=== PATIENT | female | born 1985 | race Caucasian/White ===

== ENCOUNTER 2018-09-23 11:55 | Emergency (ER) | payer SELFPAY ==
[2018-09-23 12:59] LABS: Barbiturates NEGATIVE (NEGATIVE); Benzodiazepines NEGATIVE (NEGATIVE); Cocaine NEGATIVE (NEGATIVE); METHAMPHETAM NEGATIVE (NEGATIVE); Methadone NEGATIVE (NEGATIVE); Opiates NEGATIVE (NEGATIVE); Phencyclidine NEGATIVE (NEGATIVE); THC Cannibis NEGATIVE (NEGATIVE)
[2018-09-23 13:19] LABS: Absolute Lymphocytes (CBC) 1.6 K/uL (0.7-4.9); Absolute Monocytes 0.6 K/uL (0.1-1.3); Absolute Neutrophil 6.7 K/uL (1.8-8.0); Basophils % 0.5 % (0-1.3); Eosinophils % 0.1 % (0-4.4); Hematocrit 45.9 % (36.0-45.0); Lymphocytes % 17.5 % (15.3-44.8); MPV 8.5 fL (7.6-11.3); Monocytes % 6.8 % (3.3-12.3); RBC Red Blood Cell Count 4.94 M/uL (3.86-4.86)
[2018-09-23 13:52] LABS: BUN Blood Urea Nitrogen 13 mg/dL (7-18); Bicarbonate 23 mmol/L (21-32); Glucose Level 88 mg/dL (74-106); HCG, Quantitative 2636 mIU/mL (1-3); Potassium 3.7 mmol/L (3.5-5.1); Sodium Level 141 mmol/L (136-145)
[2018-09-23 14:39] LABS: Urine Blood NEGATIVE (NEG); Urine Glucose NEGATIVE (NEG); Urine Protein 2+ (NEG); Urine Specific Gravity >1.030 (1.005-1.030); Urine pH 5.5 (5.0-7.0)
[2018-09-23] MEDS ORDERED: ACETAMINOPHEN 500 MG TAB ONE ×2 (15:08→15:15)
[2018-09-23] MEDS ORDERED: NA CHLORIDE 0.9% 1,000 ML ONE (15:37)
--- NOTE | 2018-09-23 15:38 | RAD REPORT ---
EXAM DESCRIPTION: US - Transvaginal OB - 09/23/2018 3:10 pm CLINICAL HISTORY: Pelvic pain, early , abdominal cramping COMPARISON: None. TECHNIQUE: Endovaginal sonography performed. FINDINGS: An oval gestational sac or cyst is present in the fundal portion of the endometrial cavity . Sac is normal in shape. Size corresponds to a 5 week 0 day age. No pole or yolk sac identifia ble. A 2.5 centimeter complex right ovarian cyst is identified. No left ovarian abnormality seen. No adnex al mass. Prominent vessels are seen adjacent to the uterus. No hemorrhage, mass or other suspicious u terine finding. IMPRESSION: A 5 week 0 day sized gestational sac is seen in the fundal endometrial cavity. No pole identifiable. No significant mass or hematoma within the uterus. Complex right ovarian 2.5 centimeter cyst. Findings likely reflect early . Followup sonography can be performed as warranted.
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
[2018-09-23 17:38] VITALS: TEMP 98.3
[2018-09-23 17:39] VITALS: O2SAT 100
[2018-09-23 17:44] VITALS: BP 112/70
== END 2018-09-23 17:30 | disposition home or self-care (01) ==
LOC: ER 11:55
DX: O99.341 Other mental disorders complicating pregnancy, first trimester (principal); F41.9 Anxiety disorder, unspecified; E86.0 Dehydration; O99.331 Smoking (tobacco) complicating pregnancy, first trimester; F17.210 Nicotine dependence, cigarettes, uncomplicated; Z3A.01 Less than 8 weeks gestation of pregnancy; Z88.6 Allergy status to analgesic agent
CPT/HCPCS: 36415; 76817; 80048; 80307; 81003; 81025; 84702; 85025; 86900; 86901; 96360; 99284; J7030